=== PATIENT | female | born 1995 | race Caucasian/White ===

== ENCOUNTER → 2020-08-31 | Outpatient (CLI) | payer BC | LOC: HEART CORB 13:42 | DX: R00.0 Tachycardia, unspecified (principal) ==

== ENCOUNTER → 2021-09-30 | Outpatient (CLI) | payer BC | LOC: HEART CORB 08:00 | DX: I27.20 Pulmonary hypertension, unspecified (principal); R00.2 Palpitations; R00.0 Tachycardia, unspecified | CPT/HCPCS: 93306 ==